=== PATIENT | male | born 1990 | race Caucasian/White ===

== ENCOUNTER 2020-12-25 11:24 | Emergency (ER) | payer MEDICAID ==
[~2020-12-25] VITALS: Ht 185.4 cm; Wt 70.5 kg
[2020-12-25 11:34] VITALS: BP 139/80
[2020-12-25 11:50] LABS: CLARITY,URINE CLEAR (Clear); COLOR,URINE STRAW (Yellow); GLUCOSE, URINE NEGATIVE (Neg); KETONES,URINE NEGATIVE (Neg); LEUKOCYTE ESTERASE ,URINE NEGATIVE (Neg); NITRITES, URINE NEGATIVE (Neg); OCCULT BLOOD,URINE NEGATIVE (Neg); PROTEIN,URINE NEGATIVE (Neg); UROBILINOGEN,URINE 0.2 E.U/dL (0.2-1.0)
[2020-12-25 11:51] LABS: UA COLLECTION TYPE VOIDED
[2020-12-25 12:39] LABS: BASOPHILS % (AUTO) 0.5 % (0-1); EOSINOPHILS % (AUTO) 0.4 % (0-6); HEMATOCRIT 45.2 % (42.0-52.0); HEMOGLOBIN 14.2 g/dl (14.0-17.9); LYMPHOCYTES # (AUTO) 1.7 X10'3 (1.1-4.8); LYMPHOCYTES % (AUTO) 26.4 % (21-51); MEAN CORPUSCULAR HEMOGLOBIN 22.4 PG (27.0-31.0); MEAN CORPUSCULAR HGB CONC 31.4 g/dL (33.0-36.5); MEAN CORPUSCULAR VOLUME 71.2 FL (78-98); MONOCYTES # (AUTO) 0.7 X10'3 (0-0.9); MONOCYTES % (AUTO) 10.6 % (2-12); NEUTROPHILS % (AUTO) 62.1 % (42-75); PLATELET COUNT 261 X10'3 (140-440); RED BLOOD COUNT 6.35 X10'6 (4.70-6.10); WHITE BLOOD COUNT 6.4 X10'3 (4.5-11.0)
[2020-12-25] MEDS ORDERED: iohexol 300mg/ml 100ml inj. ONE (12:42)
[2020-12-25 12:50] LABS: ALANINE AMINOTRANSFERASE 23 U/L (12-78); ALBUMIN 4.2 G/DL (3.4-5.0); ALBUMIN/GLOBULIN RATIO 1.2 (1.1-1.5); ALKALINE PHOSPHATASE 56 IU/L (46-116); ANION GAP 7 (8-16); ASPARTATE AMINO TRANSFERASE 13 U/L (10-37); BILIRUBIN,TOTAL 0.4 MG/DL (0.1-1.0); BLOOD UREA NITROGEN 13 MG/DL (7-18); BUN/CREATININE RATIO 12.9 (5.4-32.0); CALCIUM 9.3 MG/DL (8.5-10.1); CHLORIDE 105 MMOL/L (99-107); CREATININE 1.01 MG/DL (0.60-1.10); GLUCOSE 103 MG/DL (70-104); LIPASE 162 U/L (73-393); POTASSIUM 4.1 MMOL/L (3.5-5.1); SODIUM 141 MMOL/L (135-145); TOTAL CARBON DIOXIDE 29.3 MMOL/L (24-32); TOTAL PROTEIN 7.7 G/DL (6.4-8.2); eGFR 86 ML/MIN
== END 2020-12-25 14:40 | disposition home or self-care (01) ==
LOC: ER 11:24
DX: K62.5 Hemorrhage of anus and rectum (principal); R10.84 Generalized abdominal pain; I86.1 Scrotal varices; F12.90 Cannabis use, unspecified, uncomplicated; Z72.89 Other problems related to lifestyle
CPT/HCPCS: 36415; 74177; 80053; 81003; 83690; 85025; 99285; Q9967

== ENCOUNTER 2022-02-09 08:07 | Day surgery (SDC) | payer MEDICAID ==
[2022-02-04 11:17] LABS: BASOPHILS % (AUTO) 0.4 % (0-1); EOSINOPHILS % (AUTO) 0.4 % (0-6); LYMPHOCYTES # (AUTO) 1.9 X10'3 (1.1-4.8); MEAN CORPUSCULAR HEMOGLOBIN 22.6 PG (27.0-31.0); MEAN CORPUSCULAR HGB CONC 31.8 g/dL (33.0-36.5); MEAN CORPUSCULAR VOLUME 71.1 FL (78-98); MEAN PLATELET VOLUME 8.7 FL (7.4-10.4); MONOCYTES % (AUTO) 9.9 % (2-12); NEUTROPHILS # (AUTO) 6.7 X10'3 (1.8-7.7); NEUTROPHILS % (AUTO) 69.3 % (42-75); PRE OP HEMATOCRIT 45.5 % (42.0-52.0); PRE OP HEMOGLOBIN 14.5 g/dL (14.0-17.9); PRE OP PLATELET COUNT 256 X10'3 (140-440); RED CELL DISTRIBUTION WIDTH 15.7 % (11.5-14.5)
[2022-02-04 11:21] LABS: CLARITY,URINE CLEAR (Clear); COLOR,URINE YELLOW (Yellow); GLUCOSE, URINE NEGATIVE (Neg); KETONES,URINE NEGATIVE (Neg); LEUKOCYTE ESTERASE ,URINE NEGATIVE (Neg); NITRITES, URINE NEGATIVE (Neg); OCCULT BLOOD,URINE NEGATIVE (Neg); PROTEIN,URINE NEGATIVE (Neg); UROBILINOGEN,URINE 0.2 E.U/dL (0.2-1.0)
[2022-02-04 11:23] LABS: UA COLLECTION TYPE CLN CATCH MIDSTREAM
[2022-02-04 11:37] LABS: ALBUMIN 4.1 G/DL (3.4-5.0); ALBUMIN/GLOBULIN RATIO 1.3 (1.1-1.5); ALKALINE PHOSPHATASE 46 IU/L (46-116); BLOOD UREA NITROGEN 18 MG/DL (7-18); CALCIUM 8.8 MG/DL (8.5-10.1); CHLORIDE 106 MMOL/L (99-107); PRE OP ALT 48 U/L (30-65); PRE OP ANION GAP 7 (8-16); PRE OP AST 25 U/L (10-37); PRE OP BILIRUB, TOTAL 0.5 MG/DL (0.0-1.0); PRE OP GLUCOSE 102 MG/DL (70-104); PRE OP POTASSIUM 5.1 MMOL/L (3.4-5.1); PRE OP SODIUM 141 MMOL/L (135-145); TOTAL CARBON DIOXIDE 28.1 MMOL/L (24-32); TOTAL PROTEIN 7.3 G/DL (6.4-8.2); eGFR 70 ML/MIN
[2022-02-09] VITALS (9 sets, daily range): BP systolic 124–139; BP diastolic 74–87
[~2022-02-09] VITALS: Ht 185.4 cm; Wt 78.6 kg
[~2022-02-09 08:07] MED LIST: MULT-1085 PO; cefazolin/dext.iso 2gm/50ml IV ONE; famotidine 20mg tablet PO ONE; ringers solution, lacted 1,000 ML IV SCH
[2022-02-09] MEDS ORDERED: BUPIVAcaine 0.5% inj/PF 30 ML ONE (10:02)
[2022-02-09] MEDS ORDERED: fentaNYL /PF 50mcg/ml 5ml ampule ONE (12:52)
[2022-02-09] MEDS ORDERED: midazolam 1 mg/ML 2ml injection ONE (12:52)
[2022-02-09] MEDS ORDERED: propofol inj 20 ML IV ONE (12:53)
[2022-02-09] MEDS ORDERED: rocuronium 10mg/ml inj IV ONE (12:53)
[2022-02-09] MEDS ORDERED: BUPIVAcaine 0.5% inj/PF 30 ml vial IJ ONE (13:23)
[2022-02-09] MEDS ORDERED: dexamethasone sod phosphate 4mg/ml inj. ONE (13:50)
[2022-02-09] MEDS ORDERED: acetaminophen 1,000mg/100ml IV 100 ML IV ONE (13:50)
[2022-02-09] MEDS ORDERED: ondansetron/PF 4mg/2ml inj ONE (13:50)
[2022-02-09] MEDS ORDERED: sugammadex 200mg/2ml injection IV ONE (13:52)
[2022-02-09] MEDS ORDERED: meperidine/PF 25mg/ml syringe ONE ×2 (14:03→14:44)
--- NOTE | 2022-02-09 14:15 | NUR ---
Received from OR via BED, accompanied by Anesthesiologist and report given by Anesthesiologist. PATIENT WAKING UP, NO S/S OF PAIN, V/S WNL, SCD ON, 20G TO LUE, LAP SITES TO BELLY DERMA BONDED CLOSED W/ NO S/S OF COMPLICATIONS AND OR DRAINAGE
[2022-02-09] MEDS ORDERED: HYDROcodone/acetaminophen 10/325mg tab PO ONE (14:30)
[2022-02-09] MEDS ORDERED: proCHLORperazine 10 MG/2 ml inj IV PRN (14:55)
[2022-02-09] MEDS ORDERED: ondansetron/PF 4mg/2ml inj IV PRN (14:55)
[2022-02-09] MEDS ORDERED: morphine 4 MG/ML inj SYRINge IV PRN (14:55)
[2022-02-09] MEDS ORDERED: ringers solution, lacted 1,000 ML IV SCH (14:55)
[2022-02-09] MEDS ORDERED: meperidine/PF 25mg/ml syringe IV PRN (14:55)
--- NOTE | 2022-02-09 15:45 | NUR ---
PATIENT A&OX4, DENIES PAIN, V/S WNL, SCD ON, 20G TO LUE D/C, LAP SITES TO BELLY DERMA BONDED CLOSED W/ NO S/S OF COMPLICATIONS AND OR DRAINAGE. . I HAVE REVIEWED D/C INSTRUCTIONS WITH PATIENT and they have verbalized understanding patient d/c home with all belongings and family gave transport home.
== END 2022-02-09 15:45 | disposition home or self-care (01) ==
LOC: PAS 08:07
PROVIDERS: ATTEND Surgery
DX: K40.90 Unilateral inguinal hernia, without obstruction or gangrene, not specified as recurrent (principal); Z20.822 Contact with and (suspected) exposure to COVID-19; Z79.899 Other long term (current) drug therapy; Z98.890 Other specified postprocedural states
CPT/HCPCS: 36415; 49650; 80053; 81003; 82948; 85025; C1758; C1781; J0131; J1100; J2175; J2250; J2405; J2704; J3010; J3490; J7030; J7120; S0020; S2900; U0003; U0005; Z7506; Z7508; Z7512; A4215; A4618